=== PATIENT | female | born 1960 | race African-American/Black ===

== ENCOUNTER 2017-06-29 11:53 | Emergency (ER) | payer OTHER ==
[2017-06-29 11:58] VITALS: BP 129/69; PULSE 61; TEMP 98.6; BMI 33.6
[2017-06-29] MEDS ORDERED: IBUPROFEN 400 MG TABLET (FP) PO ONE ×2 (12:48→12:53)
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
== END 2017-06-29 13:01 | disposition home or self-care (01) ==
LOC: JERFT 11:53
DX: S43.492A Other sprain of left shoulder joint, initial encounter (principal); S29.012A Strain of muscle and tendon of back wall of thorax, initial encounter; Y04.2XXA Assault by strike against or bumped into by another person, initial encounter; Y93.89 Activity, other specified; Y92.118 Other place in children's home and orphanage as the place of occurrence of the external cause; Y99.0 Civilian activity done for income or pay; I10 Essential (primary) hypertension; J45.909 Unspecified asthma, uncomplicated
CPT/HCPCS: 99281-25

== ENCOUNTER 2022-08-07 15:01 | Emergency (ER) | payer OTHER ==
[2022-08-07 15:06] VITALS: BP 110/70; RESP 19; BMI 30.9
[2022-08-07 15:07] VITALS: TEMP 98.6
[2022-08-07 15:13] VITALS: PULSE 62
[2022-08-07] MEDS ORDERED: BACITRACIN ZINC 15 GM TUBE TOPICAL OINTMENT TP ONE (15:52)
[2022-08-07] MEDS ORDERED: BACITRACIN ZINC 15 GM TUBE TOPICAL OINTMENT ONE (15:55)
[2022-08-07] MEDS ORDERED: ACETAMINOPHEN 500 MG TABLET (FP) PO ONE (17:02)
[2022-08-07] MEDS ORDERED: ACETAMINOPHEN 500 MG TABLET (FP) ONE (17:03)
== END 2022-08-07 17:07 | disposition home or self-care (01) ==
LOC: JERFT 15:01 → JER 15:01 → JERFT 17:07
DX: S00.81XA Abrasion of other part of head, initial encounter (principal); S00.83XA Contusion of other part of head, initial encounter; W22.8XXA Striking against or struck by other objects, initial encounter
CPT/HCPCS: 70450-TC; 70486-TC; 99284-25